=== PATIENT | male | born 1990 | race Caucasian/White ===

== ENCOUNTER 2016-12-01 12:03 | Emergency (ER) | payer MEDICAID ==
[~2016-12-01] VITALS: Ht 177.8 cm; Wt 89.8 kg
[2016-12-01] MEDS ORDERED: CITA20TA4 PO ×2 (12:14→12:16)
[2016-12-01] MEDS ORDERED: METO25TAB PO (12:16)
[2016-12-01] MEDS ORDERED: KETOROLAC 30 MG/ML VIAL (J1885) IM ONE (13:00)
[2016-12-01] MEDS ORDERED: HYDR25OIN TOP (13:47)
[2016-12-01] MEDS ORDERED: ULTR50TA PO (13:47)
[2016-12-01] MEDS ORDERED: CYCL10TA PO (13:47)
[2016-12-01] MEDS ORDERED: NAPR500T PO (13:47)
[2016-12-01] MEDS ORDERED: DULC10SU2 PR (13:49)
[2016-12-01 14:00] VITALS: BP 119/69
[2016-12-01] MEDS ORDERED: ACET-71 PO (14:15)
[2016-12-01] MEDS ORDERED: HYDR-3713 PO (14:17)
== END 2016-12-01 14:24 | disposition home or self-care (01) ==
LOC: M ED 12:44
DX: M54.42 Lumbago with sciatica, left side (principal); K64.9 Unspecified hemorrhoids; Z79.899 Other long term (current) drug therapy
CPT/HCPCS: 96372; 99282; J1885

== ENCOUNTER 2017-01-26 16:07 | Emergency (ER) | payer OTHER ==
[~2017-01-26] VITALS: Ht 180.3 cm; Wt 83.9 kg
[~2017-01-26 16:07] MED LIST: ACET-71 PO; CITA20TA4 PO; CYCL10TA PO; DULC10SU2 PR; HYDR-3713 PO; HYDR25OIN TOP; METO25TAB PO; NAPR500T PO; ULTR50TA PO
[2017-01-26] MEDS ORDERED: NS 1,000 ML IV ONE ×2 (16:15→18:15)
[2017-01-26 17:18] LABS: ALBUMIN 3.4 GM/DL (3.2-5.2); ALBUMIN/GLOBULIN RATIO 1.06 (1.00-1.93); ALKALINE PHOSPHATASE 75 U/L (45-117); ALT/SGPT 13 U/L (12-78); ANION GAP 6 MEQ/L (8-16); AST/SGOT 9 U/L (15-37); BILIRUBIN,DIRECT < 0.1 MG/DL (0.0-0.2); BILIRUBIN,TOTAL 0.3 MG/DL (0.2-1.0); BLOOD UREA NITROGEN 13 MG/DL (7-18); CARBON DIOXIDE LEVEL 26 MEQ/L (21-32); CHLORIDE LEVEL 109 MEQ/L (98-107); CREATININE FOR GFR 0.84 MG/DL (0.70-1.30); GLOMERULAR FILTRATION RATE > 60.0 (>60); GLUCOSE, FASTING 81 MG/DL (70-105); SODIUM LEVEL 141 MEQ/L (136-145); TOTAL PROTEIN 6.6 GM/DL (6.4-8.2)
[2017-01-26 17:44] LABS: MEAN CORPUSCULAR HEMOGLOBIN 32.8 pg (27.0-33.0); MEAN CORPUSCULAR HGB CONC 32.8 g/dl (32.0-36.5); MEAN CORPUSCULAR VOLUME 100.1 fl (80.0-96.0); WHITE BLOOD COUNT 6.3 K/mm3 (4.0-10.0)
[2017-01-26 20:20] VITALS: BP 105/74
--- NOTE | 2017-01-27 20:07 | ECGEPIP ---
Stationary ECG Study 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
== END 2017-01-26 21:08 | disposition left against medical advice (07) ==
LOC: M ED 16:57
DX: F13.10 Sedative, hypnotic or anxiolytic abuse, uncomplicated (principal); F11.10 Opioid abuse, uncomplicated

== ENCOUNTER 2017-03-01 10:07 | Emergency (ER) | payer OTHER ==
[2017-03-01 10:08] VITALS: BP 136/77
[2017-03-01] MEDS ORDERED: ALPR1TAB3 PO (10:29)
[2017-03-01] MEDS ORDERED: TRAM50TA2 PO (10:29)
[2017-03-01] MEDS ORDERED: METO25TA74 PO (10:29)
[2017-03-01] MEDS ORDERED: NORCO, ANEXSIA 5/325MG TABLET (HYDROcodone/ACETAMINOPHEN) PO ONE (13:15)
[2017-03-01] MEDS ORDERED: NAPR500T PO (13:27)
== END 2017-03-01 13:34 | disposition home or self-care (01) ==
LOC: M ED 11:03
DX: S20.219A Contusion of unspecified front wall of thorax, initial encounter (principal); V17 Pedal cycle rider injured in collision with fixed or stationary object; Y92.9 Unspecified place or not applicable; Y93.55 Activity, bike riding; Y99.9 Unspecified external cause status; Z79.899 Other long term (current) drug therapy

== ENCOUNTER 2017-03-03 11:56 | Emergency (ER) | payer OTHER ==
[~2017-03-03] VITALS: Ht 177.8 cm; Wt 97.2 kg
[~2017-03-03 11:56] MED LIST changes: +ALPR1TAB3 PO; +METO25TA74 PO; +TRAM50TA2 PO
[2017-03-03] MEDS ORDERED: CITA20TA4 PO (12:05)
[2017-03-03] MEDS ORDERED: NORCO, ANEXSIA 5/325MG TABLET (HYDROcodone/ACETAMINOPHEN) PO ONE (13:30)
--- NOTE | 2017-03-03 14:20 | REP ---
Right ribs and PA chest: Comparison is the PA and lateral chest 03/01/2017. Right ribs four views: There is no rib fracture or other rib abnormality. PA chest: There is no pneumothorax, hemothorax or pulmonary contusion. Lung zaman are clear. Cardiac size is normal. The chace, mediastinum, and bony thorax are unremarkable. Impression: Negative PA chest. No interval change. Signed by Preston Walker MD 03/03/2017 02:12 P
[2017-03-03 15:02] VITALS: BP 151/95
== END 2017-03-03 15:04 | disposition home or self-care (01) ==
LOC: M ED 13:01
DX: S20.219D Contusion of unspecified front wall of thorax, subsequent encounter (principal); V17 Pedal cycle rider injured in collision with fixed or stationary object; Y92.9 Unspecified place or not applicable; Y93.55 Activity, bike riding; Y99.9 Unspecified external cause status; R07.89 Other chest pain; I10 Essential (primary) hypertension; G89.29 Other chronic pain; F41.9 Anxiety disorder, unspecified; F32.9 Major depressive disorder, single episode, unspecified; F17.200 Nicotine dependence, unspecified, uncomplicated; Z79.899 Other long term (current) drug therapy

== ENCOUNTER 2017-03-12 23:06 | Inpatient (IN) | payer OTHER ==
[~2017-03-12] VITALS: Ht 177.8 cm; Wt 81.4 kg
[~2017-03-12 23:06] MED LIST changes: -ACET-71 PO; +ACET1TAB16 PO; +METO1TAB32 PO; +METO25TA4 PO; -METO25TA74 PO; -METO25TAB PO; -ULTR50TA PO; +ULTR50TA8 PO
[2017-03-13 02:35] LABS: RED CELL DISTRIBUTION WIDTH 13.5 % (11.5-14.5); WHITE BLOOD COUNT 8.1 K/mm3 (4.0-10.0)
[2017-03-13 03:10] LABS: ALBUMIN 4.2 GM/DL (3.2-5.2); ALBUMIN/GLOBULIN RATIO 1.17 (1.00-1.93); ALKALINE PHOSPHATASE 90 U/L (45-117); ALT/SGPT 14 U/L (12-78); ANION GAP 10 MEQ/L (8-16); AST/SGOT 8 U/L (15-37); BILIRUBIN,DIRECT 0.2 MG/DL (0.0-0.2); BILIRUBIN,TOTAL 0.6 MG/DL (0.2-1.0); BLOOD UREA NITROGEN 7 MG/DL (7-18); CALCIUM LEVEL 9.2 MG/DL (8.5-10.1); CARBON DIOXIDE LEVEL 23 MEQ/L (21-32); CHLORIDE LEVEL 108 MEQ/L (98-107); CREATININE FOR GFR 0.86 MG/DL (0.70-1.30); GLOMERULAR FILTRATION RATE > 60.0 (>60); GLUCOSE, FASTING 105 MG/DL (70-105); POTASSIUM SERUM 4.2 MEQ/L (3.5-5.1); SODIUM LEVEL 141 MEQ/L (136-145); TOTAL PROTEIN 7.8 GM/DL (6.4-8.2)
[2017-03-13] MEDS ORDERED: MOM 30ML SUSPENSION UDC PO PRN (04:30)
[2017-03-13] MEDS ORDERED: traZODone 50 MG TAB PO PRN (04:30)
[2017-03-13] MEDS ORDERED: MAALOX 30 ML SUSP *UDC PO PRN (04:30)
[2017-03-13 04:40] LABS: METHADONE URINE NEGATIVE (NEGATIVE)
[2017-03-13] MEDS ORDERED: TRAM50TA2 PO (05:14)
[2017-03-13] MEDS ORDERED: NAPR1TAB86 PO (05:14)
[2017-03-13 05:26] VITALS: BP 162/100
[2017-03-13] MEDS: CitaloPRAM (CeleXA) 20 MG TAB PO SCH (09:00)
[2017-03-13] MEDS: MULTIVITAMINS/MINERALS THERAP 1 TAB PO SCH (09:00)
[2017-03-13] MEDS: FOLIC ACID 1 MG TAB PO SCH (09:00)
[2017-03-13] MEDS: THIAMINE 100 MG TAB PO SCH ×2 (09:00→20:09)
[2017-03-13] MEDS ORDERED: SERTRALINE HCL 50 MG TAB PO SCH (09:00)
[2017-03-13] MEDS ORDERED: LORazepam 2 MG TAB PO PRN (10:30)
[2017-03-13] MEDS: diphenhydrAMINE 50 MG CAP PO PRN (16:31)
[2017-03-13 18:00] VITALS: BP 135/81
[2017-03-13] MEDS: ALPRAZolam 0.5 MG TAB PO PRN (20:53)
[2017-03-13] MEDS: ACETAMINOPHEN TAB 650MG DOSE (2X325MG) PO PRN (20:54)
[2017-03-13] MEDS: hydrOXYzine 50 MG TAB PO PRN (20:56)
[2017-03-13] MEDS: BACITRACIN OINT 30GM TOP SCH (21:00)
[2017-03-13] MEDS ORDERED: ONDANSETRON 4 MG ORAL DISINTEGRATING TAB (S0181) SL PRN (23:15)
[2017-03-13] MEDS ORDERED: diphenhydrAMINE CREAM 30GM TOP PRN (23:15)
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
[2017-03-14 06:00] VITALS: BP 117/73
[2017-03-14] MEDS: BACITRACIN OINT 30GM TOP SCH ×2 (09:00→21:00)
[2017-03-14] MEDS: MULTIVITAMINS/MINERALS THERAP 1 TAB PO SCH (09:35)
[2017-03-14] MEDS: CitaloPRAM (CeleXA) 20 MG TAB PO SCH (09:35)
[2017-03-14] MEDS: THIAMINE 100 MG TAB PO SCH ×2 (09:35→21:18)
[2017-03-14] MEDS: FOLIC ACID 1 MG TAB PO SCH (09:35)
[2017-03-14] MEDS: diphenhydrAMINE 50 MG CAP PO PRN ×2 (11:29→21:18)
[2017-03-14] MEDS: ALPRAZolam 0.5 MG TAB PO PRN (12:08)
[2017-03-14 18:00] VITALS: BP 116/72
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
[2017-03-15 06:28] VITALS: BP 104/55
[2017-03-15] MEDS: MULTIVITAMINS/MINERALS THERAP 1 TAB PO SCH (08:59)
[2017-03-15] MEDS: FOLIC ACID 1 MG TAB PO SCH (08:59)
[2017-03-15] MEDS: CitaloPRAM (CeleXA) 20 MG TAB PO SCH (08:59)
[2017-03-15] MEDS: THIAMINE 100 MG TAB PO SCH ×2 (08:59→20:44)
[2017-03-15] MEDS: BACITRACIN OINT 30GM TOP SCH ×2 (09:00→20:45)
[2017-03-15] MEDS: chlordiazePOXIDE 25 MG CAP PO SCH ×2 (15:39→20:44)
[2017-03-15] MEDS: ACETAMINOPHEN TAB 650MG DOSE (2X325MG) PO PRN (15:40)
--- NOTE | 2017-03-15 18:09 | IPN ---
DATE: 03/15/2017 A 26-year-old male with a history of polysubstance dependency, admitted for depression and suicidal ideation. SUBJECTIVE: "I am about the same, and I am withdrawing." OBJECTIVE: The patient is depressed, tearful at times with psychomotor retardation, sad, restricted facial expression. Reports high anxiety. Unable to sleep and symptoms from alcohol withdrawal. MENTAL STATUS EXAMINATION: The patient is dressed in [facility]. The patient is cooperative, has poor eye contact. Speech is slow and monotone. Mood is depressed and anxious. Affect is restricted, sad. No delusions or hallucinations. Memory, attention and concentration are impaired. The patient is able to contract for safety during his hospitalization. Insight and judgment is limited. ASSESSMENT: 1. Depression. 2. Suicidal ideation. 3. Polysubstance dependency. PLAN: 1. Start Librium 25 mg by mouth three times a day. 2. Trazodone 50 mg by mouth nightly. 3. Celexa 20 mg by mouth nightly. 4. Thiamine, folic acid and multivitamins as per detox protocol. 5. Close observation. 6. Continue medication management, individual and group therapy.
[2017-03-15 18:32] VITALS: BP 110/57
[2017-03-15] MEDS ORDERED: traZODone 50 MG TAB PO SCH (21:00)
[2017-03-16 06:30] VITALS: BP 110/67
[2017-03-16] MEDS: BACITRACIN OINT 30GM TOP SCH ×2 (08:36→20:12)
[2017-03-16] MEDS: FOLIC ACID 1 MG TAB PO SCH (08:51)
[2017-03-16] MEDS: chlordiazePOXIDE 25 MG CAP PO SCH ×3 (08:51→20:14)
[2017-03-16] MEDS: CitaloPRAM (CeleXA) 20 MG TAB PO SCH (08:51)
[2017-03-16] MEDS: MULTIVITAMINS/MINERALS THERAP 1 TAB PO SCH (08:51)
--- NOTE | 2017-03-16 16:16 | IPN ---
DATE: 03/16/2017 A 26-year-old male with a history of depression and polysubstance dependency, admitted with suicidal ideation. SUBJECTIVE: "I could not sleep last night, I keep waking up." OBJECTIVE: The patient is experiencing less symptoms of withdrawal today. Continues depressed with psychomotor retardation, restricted facial expression, and anxious. The patient is tolerating well the medication. The patient reports significant insomnia and waking up constantly. MENTAL STATUS EXAMINATION: The patient is dressed in [facility]. The patient is cooperative, has poor eye contact. Speech is slow and monotone. Mood is depressed and anxious. Affect is restricted. No delusions or hallucinations. Memory, attention and concentration are fair. The patient is able to contract for safety during his hospitalization. Insight and judgment is limited. ASSESSMENT: 1. Depression. 2. Suicidal ideation. 3. Polysubstance dependency. PLAN: 1. Continue with Librium 25 mg by mouth three times a day. 2. Increase trazodone to 100 mg by mouth at bedtime. 3. Continue Celexa 20 mg by mouth at bedtime. 4. Continue thiamine, folic acid and multivitamins as per detoxification protocol. 5. Continue medication management, individual and group therapy.
[2017-03-16 18:21] VITALS: BP 112/59
[2017-03-16] MEDS: traZODone 100 MG TAB PO SCH (20:14)
[2017-03-16] MEDS: ACETAMINOPHEN TAB 650MG DOSE (2X325MG) PO PRN (20:15)
[2017-03-17 06:32] VITALS: BP 125/59
[2017-03-17] MEDS: CitaloPRAM (CeleXA) 20 MG TAB PO SCH (08:06)
[2017-03-17] MEDS: FOLIC ACID 1 MG TAB PO SCH (08:06)
[2017-03-17] MEDS: chlordiazePOXIDE 25 MG CAP PO SCH (08:06)
[2017-03-17] MEDS: MULTIVITAMINS/MINERALS THERAP 1 TAB PO SCH (08:06)
[2017-03-17] MEDS: BACITRACIN OINT 30GM TOP SCH ×2 (08:07→20:15)
[2017-03-17] MEDS: diphenhydrAMINE 50 MG CAP PO PRN (13:34)
[2017-03-17] MEDS: hydrOXYzine 50 MG TAB PO PRN ×2 (13:53→20:14)
[2017-03-17 18:16] VITALS: BP 130/72
[2017-03-17] MEDS: ACETAMINOPHEN TAB 650MG DOSE (2X325MG) PO PRN (19:04)
--- NOTE | 2017-03-17 19:16 | IPN ---
DATE: 03/17/2017 A 26-year-old male with a history of depression, polysubstance dependency, admitted for depression and suicidal ideation. SUBJECTIVE: "I'm feeling a little better." OBJECTIVE: Patient was able to sleep better with trazodone last night. His withdrawal symptoms have improved. Denies side effect from the medication. There is no evidence of psychotic symptoms. No auditory or visual hallucinations or delusions. Patient continues with a sad, restricted facial expression and psychomotor retardation. Patient is able to contract for safety while in the hospital. MENTAL STATUS EXAMINATION: Patient is dressed in [facility]. Patient is cooperative. Has poor eye contact. His speech is slow and monotone. Mood is depressed and anxious. Affect is restricted. Denies delusions or hallucinations. Memory, attention, and concentration are fair. Patient is able to contract for safety. Insight and judgment are limited. ASSESSMENT: 1. Depression. 2. Suicidal ideation. 3. Polysubstance dependency. PLAN: 1. Decreased Librium to 10 mg by mouth three times a day. 2. Continue trazodone 100 mg by mouth at bedtime. 3. Continue Celexa 20 mg by mouth every morning. 4. Continue medication management, individual and group therapy.
[2017-03-17] MEDS: traZODone 100 MG TAB PO SCH (21:32)
[2017-03-18 06:50] VITALS: BP 125/58
[2017-03-18] MEDS: CitaloPRAM (CeleXA) 20 MG TAB PO SCH (08:42)
[2017-03-18] MEDS: MULTIVITAMINS/MINERALS THERAP 1 TAB PO SCH (08:42)
[2017-03-18] MEDS: FOLIC ACID 1 MG TAB PO SCH (08:42)
[2017-03-18] MEDS: BACITRACIN OINT 30GM TOP SCH ×2 (08:43→20:13)
[2017-03-18] MEDS: ACETAMINOPHEN TAB 650MG DOSE (2X325MG) PO PRN ×2 (15:29→21:44)
--- NOTE | 2017-03-18 16:11 | IPN ---
DATE: 03/18/2017 26-year-old male with history of depression, polysubstance dependency, admitted to our unit with suicidal ideation and worsening symptoms of depression. SUBJECTIVE: "I am feeling better." OBJECTIVE: Patient is improving slowly. Patient is sleeping better with the help of the medication. There is no evidence of withdrawal symptoms today. Denies side effect from the medication. No auditory or visual hallucinations or delusions. Patient continues with sad, restricted facial expression and psychomotor retardation. Patient is able to contract for safety while in the hospital. MENTAL STATUS EXAMINATION: Patient is dressed in [facility]. Patient is cooperative, has poor eye contact. Speech is slow and monotone. Mood is depressed and anxious. Affect is restricted. Patient's memory, attention, and concentration are fair. No psychotic symptoms. No auditory or visual hallucinations. Patient is able to contract for safety while in the hospital. Insight and judgment is limited. ASSESSMENT: 1. Depression. 2. Suicidal ideation. 3. Polysubstance dependency. PLAN: 1. Decrease Librium to 10 mg by mouth twice a day. 2. Continue trazodone 100 mg by mouth nightly. 3. Continue Celexa 20 mg by mouth every morning. 4. Continue medication management, individual and group therapy.
[2017-03-18 18:00] VITALS: BP 148/65
[2017-03-18] MEDS: traZODone 100 MG TAB PO SCH (21:42)
[2017-03-19 06:00] VITALS: BP 130/54
[2017-03-19] MEDS: BACITRACIN OINT 30GM TOP SCH ×2 (09:00→20:29)
[2017-03-19] MEDS: CitaloPRAM (CeleXA) 20 MG TAB PO SCH (09:39)
[2017-03-19] MEDS: MULTIVITAMINS/MINERALS THERAP 1 TAB PO SCH (09:39)
[2017-03-19] MEDS: FOLIC ACID 1 MG TAB PO SCH (09:39)
[2017-03-19] MEDS: ACETAMINOPHEN TAB 650MG DOSE (2X325MG) PO PRN ×2 (11:31→18:15)
--- NOTE | 2017-03-19 15:45 | IPN ---
DATE: 03/19/2017 A 26-year-old male with a history of depression, polysubstance dependency, admitted to our unit with suicidal ideation and significant symptoms of depression. SUBJECTIVE: "I'm feeling better." OBJECTIVE: Patient continues to improve slowly. Patient reports less depression but continues with psychomotor retardation, sad, restricted facial expression, and no interaction with other patients. Has tendency to stay by himself. Patient denies side effect from the medication. Patient has low insight into his chemical dependency. He is tolerating well the taper of Librium MENTAL STATUS EXAMINATION: Patient is dressed in [facility]. Patient is cooperative. Has poor eye contact. Speech is slow and monotone. Mood is depressed and anxious. Affect is restricted. Patient's memory, attention, and concentration are fair. No psychotic symptoms. No auditory or visual hallucinations. Patient is able to contract for safety while in the hospital. Insight and judgment are limited. ASSESSMENT: 1. Depression. 2. Suicidal ideation. 3. Polysubstance dependency. PLAN: 1. Decrease Librium to 10 mg by mouth at bedtime times two days and discontinue. 2. Continue trazodone 100 mg by mouth at bedtime. 3. Continue Celexa 20 mg by mouth every morning. 4. Continue medication management, individual and group therapy.
[2017-03-19 18:25] VITALS: BP 103/56
[2017-03-19] MEDS: traZODone 100 MG TAB PO SCH (22:15)
[2017-03-20 06:20] VITALS: BP 110/57
[2017-03-20] MEDS: CitaloPRAM (CeleXA) 20 MG TAB PO SCH (08:28)
[2017-03-20] MEDS: MULTIVITAMINS/MINERALS THERAP 1 TAB PO SCH (08:28)
[2017-03-20] MEDS: FOLIC ACID 1 MG TAB PO SCH (08:28)
[2017-03-20] MEDS: BACITRACIN OINT 30GM TOP SCH ×2 (08:29→20:20)
[2017-03-20] MEDS: diphenhydrAMINE 50 MG CAP PO PRN ×2 (14:55→23:16)
[2017-03-20] MEDS: IBUPROFEN 800 MG TAB PO PRN (16:01)
[2017-03-20 18:00] VITALS: BP 128/74
[2017-03-20] MEDS: ACETAMINOPHEN TAB 650MG DOSE (2X325MG) PO PRN (20:20)
[2017-03-20] MEDS: traZODone 100 MG TAB PO SCH (23:16)
[2017-03-21 06:14] VITALS: BP 128/78
[2017-03-21] MEDS: MULTIVITAMINS/MINERALS THERAP 1 TAB PO SCH (08:33)
[2017-03-21] MEDS: BACITRACIN OINT 30GM TOP SCH ×2 (08:33→21:00)
[2017-03-21] MEDS: CitaloPRAM (CeleXA) 20 MG TAB PO SCH (08:33)
[2017-03-21] MEDS: FOLIC ACID 1 MG TAB PO SCH (08:33)
[2017-03-21] MEDS: ACETAMINOPHEN TAB 650MG DOSE (2X325MG) PO PRN ×2 (14:39→20:54)
[2017-03-21] MEDS: IBUPROFEN 800 MG TAB PO PRN (16:51)
[2017-03-21 18:43] VITALS: BP 118/64
[2017-03-21] MEDS: traZODone 100 MG TAB PO SCH (22:43)
[2017-03-22] MEDS: hydrOXYzine 50 MG TAB PO PRN (00:50)
[2017-03-22 06:36] VITALS: BP 105/57
[2017-03-22] MEDS: MULTIVITAMINS/MINERALS THERAP 1 TAB PO SCH (08:26)
[2017-03-22] MEDS: FOLIC ACID 1 MG TAB PO SCH (08:26)
[2017-03-22] MEDS: CitaloPRAM (CeleXA) 20 MG TAB PO SCH (08:26)
[2017-03-22] MEDS: BACITRACIN OINT 30GM TOP SCH ×2 (09:00→21:00)
[2017-03-22] MEDS: IBUPROFEN 800 MG TAB PO PRN ×2 (13:28→22:04)
[2017-03-22] MEDS: ACETAMINOPHEN TAB 650MG DOSE (2X325MG) PO PRN (17:00)
[2017-03-22 18:11] VITALS: BP 122/76
[2017-03-22] MEDS: traZODone 100 MG TAB PO SCH (22:30)
--- NOTE | 2017-03-22 22:32 | IPN ---
DATE: 03/22/2017 26-year-old male with history of depression, polysubstance dependency, admitted to our unit with suicidal ideation and significant symptoms of depression. SUBJECTIVE: "I feel a lot better." OBJECTIVE: The patient is improving from his depression. The patient is interacting better with other patients and staff. The patient does not have psychomotor retardation today. His facial expressions have improved. No evidence of psychotic symptoms. The patient says that he has been calling inpatient programs for rehabilitation. MENTAL STATUS EXAMINATION: The patient is dressed in [facility]. The patient is cooperative. Has fair eye contact. Speech is slow and monotone but improved. Mood is depressed and anxious but also improved. Affect is congruent with mood. Attention, concentration and memory are fair. No auditory or visual hallucinations. No delusions. The patient is able to contract for safety during his hospitalization. Insight and judgment are limited. ASSESSMENT: 1. Depression. 2. Suicidal ideation. 3. Polysubstance dependency. PLAN: 1. Continue Celexa 20 mg by mouth in the morning. 2. Continue trazodone 100 mg by mouth at night. 3. Continue medication management, individual and group therapy.
[2017-03-23 06:24] VITALS: BP 102/99
[2017-03-23] MEDS: MULTIVITAMINS/MINERALS THERAP 1 TAB PO SCH (08:22)
[2017-03-23] MEDS: CitaloPRAM (CeleXA) 20 MG TAB PO SCH (08:22)
[2017-03-23] MEDS: FOLIC ACID 1 MG TAB PO SCH (08:22)
[2017-03-23] MEDS: BACITRACIN OINT 30GM TOP SCH ×2 (08:40→20:46)
[2017-03-23] MEDS: hydrOXYzine 50 MG TAB PO PRN (15:30)
[2017-03-23 18:00] VITALS: BP 142/78
[2017-03-23] MEDS: IBUPROFEN 800 MG TAB PO PRN (21:11)
[2017-03-23] MEDS: traZODone 100 MG TAB PO SCH (22:04)
[2017-03-24 07:08] VITALS: BP 115/65
[2017-03-24] MEDS: FOLIC ACID 1 MG TAB PO SCH (08:10)
[2017-03-24] MEDS: CitaloPRAM (CeleXA) 20 MG TAB PO SCH (08:10)
[2017-03-24] MEDS: MULTIVITAMINS/MINERALS THERAP 1 TAB PO SCH (08:10)
[2017-03-24] MEDS: BACITRACIN OINT 30GM TOP SCH ×2 (08:11→21:00)
[2017-03-24] MEDS: hydrOXYzine 50 MG TAB PO PRN (09:45)
[2017-03-24] MEDS: ACETAMINOPHEN TAB 650MG DOSE (2X325MG) PO PRN (16:36)
[2017-03-24 18:00] VITALS: BP 133/62
[2017-03-24] MEDS: IBUPROFEN 800 MG TAB PO PRN (21:25)
--- NOTE | 2017-03-24 22:15 | IPN ---
DATE: 03/24/2017 26-year-old male with a history of depression and polysubstance dependency admitted to our unit with suicidal ideation and significant symptoms of depression. SUBJECTIVE: "I want to go today." OBJECTIVE: The patient was tearful this morning. The patient was thinking to call the inpatient rehabilitation program but then all of a sudden changed his mind and requested to be discharged to live with a relative; however, his facial expression was very restricted, his eyes got teary a couple of times during the interview. He appeared to be impulsive, anxious and depression. We discussed the treatment with the patient, along with landscape architect and planner. MENTAL STATUS EXAMINATION: The patient is dressed in [facility]. The patient is anxious. Speech is slow and monotone. Mood is depressed and anxious. Affect is restricted. No evidence of delusions or hallucinations. Memory, attention and concentration were fair. The patient is able to contract for safety. Insight and judgment limited. ASSESSMENT: 1. Depression. 2. Suicidal ideation. 3. Polysubstance dependency. PLAN: 1. Continue with Celexa 20 mg by mouth in the morning. 2. Continue with trazodone 100 mg by mouth at night. 3. Continue medication management, individual and group therapy.
[2017-03-24] MEDS: traZODone 100 MG TAB PO SCH (22:19)
[2017-03-25 06:29] VITALS: BP 94/50
[2017-03-25] MEDS: MULTIVITAMINS/MINERALS THERAP 1 TAB PO SCH (08:24)
[2017-03-25] MEDS: FOLIC ACID 1 MG TAB PO SCH (08:24)
[2017-03-25] MEDS: CitaloPRAM (CeleXA) 20 MG TAB PO SCH (08:24)
[2017-03-25] MEDS: BACITRACIN OINT 30GM TOP SCH ×2 (08:24→21:00)
[2017-03-25] MEDS: ACETAMINOPHEN TAB 650MG DOSE (2X325MG) PO PRN ×3 (08:55→22:10)
--- NOTE | 2017-03-25 16:13 | IPN ---
DATE: 03/25/2017 26-year-old male with history of depression and polysubstance dependency admitted to our unit with suicidal ideation and significant symptoms of depression. SUBJECTIVE: "I'm feeling a little better." OBJECTIVE: Patient is somewhat improved from yesterday. Patient is not tearful and not as labile. Patient states that he is motivated for inpatient rehabilitation. Patient is able to contract for safety. No auditory or visual hallucinations or delusions. Patient denies side effect from the medication. MENTAL STATUS EXAMINATION: Patient is dressed in [facility]. Patient's speech is still slow and monotone, but improved. Mood is depressed and anxious, but also improved. Affect is not as restricted. No evidence of delusions or hallucinations. Memory, attention, and concentration are fair. Patient is able to contract for safety during his hospitalization. Insight and judgment is improving. ASSESSMENT: 1. Depression. 2. Suicidal ideation. 3. Polysubstance dependency. PLAN: 1. Continue Celexa 20 mg by mouth every morning. 2. Continue trazodone 100 mg by mouth nightly. 3. Continue medication management, individual and group therapy.
[2017-03-25] MEDS: IBUPROFEN 800 MG TAB PO PRN (16:38)
[2017-03-25 18:17] VITALS: BP 132/87
[2017-03-25] MEDS: traZODone 100 MG TAB PO SCH (22:09)
[2017-03-26 06:28] VITALS: BP 113/54
[2017-03-26] MEDS: CitaloPRAM (CeleXA) 20 MG TAB PO SCH (08:52)
[2017-03-26] MEDS: MULTIVITAMINS/MINERALS THERAP 1 TAB PO SCH (08:52)
[2017-03-26] MEDS: FOLIC ACID 1 MG TAB PO SCH (08:52)
[2017-03-26] MEDS: BACITRACIN OINT 30GM TOP SCH ×2 (08:53→21:00)
[2017-03-26] MEDS: ACETAMINOPHEN TAB 650MG DOSE (2X325MG) PO PRN (15:04)
[2017-03-26] MEDS: IBUPROFEN 800 MG TAB PO PRN (16:42)
[2017-03-26 18:00] VITALS: BP 143/84
[2017-03-26] MEDS: diphenhydrAMINE 50 MG CAP PO PRN ×2 (19:28→23:07)
--- NOTE | 2017-03-26 22:58 | IPN ---
DATE: 03/26/2017 26-year-old male with history of depression and polysubstance dependence admitted to our unit for suicidal ideation and significant symptoms of depression. SUBJECTIVE: "I am feeling better". OBJECTIVE: The patient continues to improve. His facial expression is better. He is able to smile. He is interacting better with other patients and staff. He is motivated for treatment. He wants to followup an inpatient rehabilitation program. There is no evidence of auditory or visual hallucinations or delusions. The patient is denying side effects from medication. MENTAL STATUS EXAM: The patient is dressed in [facility]. The patient's speech is normal in rate, volume and articulation. The patient has fair eye contact. Mood is depressed. Affect is labile. No delusions or hallucinations. Memory, attention and concentration are fair. The patient is able to contract for safety during hospitalization. Insight and judgment is limited. ASSESSMENT: 1. Depression. 2. Suicidal ideation. 3. Polysubstance dependency. PLAN: 1. Continue with Celexa 20 mg by mouth every morning. 2. Continue with trazodone 100 mg by mouth at bedtime 3. Continue medication management, individual and group therapy.
[2017-03-26] MEDS: traZODone 100 MG TAB PO SCH (23:47)
[2017-03-27 06:32] VITALS: BP 118/58
[2017-03-27] MEDS: FOLIC ACID 1 MG TAB PO SCH (08:39)
[2017-03-27] MEDS: MULTIVITAMINS/MINERALS THERAP 1 TAB PO SCH (08:39)
[2017-03-27] MEDS: CitaloPRAM (CeleXA) 20 MG TAB PO SCH (08:39)
[2017-03-27] MEDS: BACITRACIN OINT 30GM TOP SCH ×2 (08:40→21:00)
[2017-03-27] MEDS: ACETAMINOPHEN TAB 650MG DOSE (2X325MG) PO PRN (09:57)
[2017-03-27] MEDS: diphenhydrAMINE 50 MG CAP PO PRN ×3 (11:32→23:22)
[2017-03-27 18:00] VITALS: BP 104/52
[2017-03-27] MEDS: traZODone 100 MG TAB PO SCH (23:23)
[2017-03-28 06:00] VITALS: BP 109/53
[2017-03-28] MEDS: FOLIC ACID 1 MG TAB PO SCH (08:45)
[2017-03-28] MEDS: MULTIVITAMINS/MINERALS THERAP 1 TAB PO SCH (08:45)
[2017-03-28] MEDS: CitaloPRAM (CeleXA) 20 MG TAB PO SCH (08:45)
[2017-03-28] MEDS: BACITRACIN OINT 30GM TOP SCH ×2 (08:46→21:00)
[2017-03-28 18:00] VITALS: BP 147/89
[2017-03-28] MEDS: ACETAMINOPHEN TAB 650MG DOSE (2X325MG) PO PRN (18:18)
[2017-03-28] MEDS: diphenhydrAMINE 50 MG CAP PO PRN (22:04)
[2017-03-28] MEDS: traZODone 100 MG TAB PO SCH (22:05)
[2017-03-29 06:50] VITALS: BP 143/62
[2017-03-29] MEDS: MULTIVITAMINS/MINERALS THERAP 1 TAB PO SCH (08:35)
[2017-03-29] MEDS: CitaloPRAM (CeleXA) 20 MG TAB PO SCH (08:35)
[2017-03-29] MEDS: FOLIC ACID 1 MG TAB PO SCH (08:35)
[2017-03-29] MEDS: BACITRACIN OINT 30GM TOP SCH ×2 (08:36→20:43)
--- NOTE | 2017-03-29 16:19 | IPN ---
DATE: 03/29/2017 VITAL SIGNS: Temperature 97.1, pulse 72, respirations 18, blood pressure 143/62. CURRENT MEDICATIONS: - trazodone 100 mg at bedtime - Celexa 20 mg by mouth daily HISTORY OF PRESENT ILLNESS: This is a 26-year-old White male with a long history of polysubstance abuse who is currently homeless. Patient has been feeling depressed and suicidal. Brought in under mental hygiene arrest to the emergency room. Patient was seen by Dr. Chinchilla and continued on Celexa and trazodone combination. Patient showed signs of alcohol withdrawal. He was given Librium for detox with good effect. Patient is being evaluated for various rehabilitation facilities in [facility] for his substance use disorder. MENTAL STATUS EXAMINATION: The patient is alert and oriented times three. Affect appears calm. Mood shows minimal signs of dysphoria. He is not current suicidal. He is not homicidal. Insight and judgment appear fair to good. He is nonpsychotic. Not hearing voices. No paranoia or thought disorder. No signs of organicity. Grooming and hygiene appear good. DIAGNOSES: 1. Major depression, moderate severity. 2. Post-traumatic stress disorder (PTSD). 3. Polysubstance use disorder. PLAN: Continue current psychotropics. Patient will be transferred to inpatient rehabilitation in the near future. Patient to be maintained in the hospital and to continue therapy.
[2017-03-29 18:00] VITALS: BP 120/61
[2017-03-29] MEDS: traZODone 100 MG TAB PO SCH (22:22)
[2017-03-30 06:27] VITALS: BP 114/59
[2017-03-30] MEDS: FOLIC ACID 1 MG TAB PO SCH (08:38)
[2017-03-30] MEDS: BACITRACIN OINT 30GM TOP SCH (08:39)
[2017-03-30] MEDS: MULTIVITAMINS/MINERALS THERAP 1 TAB PO SCH (08:39)
[2017-03-30] MEDS ORDERED: CitaloPRAM (CeleXA) 10 MG TABLET PO SCH (09:00)
[2017-03-30] MEDS ORDERED: TRAZO50TA PO (15:05)
[2017-03-30] MEDS ORDERED: CELE10TA PO (15:05)
--- NOTE | 2017-03-30 17:45 | IPN ---
DATE: 03/30/2017 VITAL SIGNS: Temperature 98.3, pulse 75, respirations 18, blood pressure 114/59. CURRENT MEDICATIONS: - Celexa 10 mg every morning - trazodone 150 mg at bedtime HISTORY OF PRESENT ILLNESS: Patient is complaining of a pressure sensation in his head due to the Celexa. Later in the day it becomes a headache. Patient wanting to reduce the Celexa to 10 mg from the current 20 mg. Patient states his depressive symptoms are mild. His posttraumatic stress disorder (PTSD) symptoms are mild. He does have vivid dreams. This is always an issue when he gets clean and sober. He is wanting to his dose of trazodone to 150 mg at bedtime. [facility] as [facility]. His appetite is good. He is sleeping fairly well at night despite the vivid dreams. His concentration has been fine. MENTAL STATUS EXAMINATION: Mood and affect appear much improved. Anxiety is minimal. Depression is mild. He is not suicidal. Not homicidal. No signs of psychosis. Not hearing voices. No paranoia. Grooming and hygiene appear good. DIAGNOSES: 1. Major depression, moderate severity. 2. Posttraumatic stress disorder. 3. Polysubstance use disorder. PLAN: Discharge early tomorrow to [facility]. Trazodone dose increased to 150 mg at bedtime.
[2017-03-30 18:00] VITALS: BP 122/76
[2017-03-30] MEDS ORDERED: traZODone 50 MG TAB PO SCH (21:00)
[2017-03-30] MEDS: diphenhydrAMINE 50 MG CAP PO PRN (22:39)
[2017-03-31 06:58] VITALS: BP 103/55
--- NOTE | 2017-04-01 18:29 | MHDS ---
DATE OF ADMISSION: 03/13/2017 DATE OF DISCHARGE: 03/31/2017 VITAL SIGNS: Temperature 98.0, pulse, 79, respiration 18, blood pressure 103/55. LABS: CBC and differential within normal limits, chemistry within normal limits except for chloride 108. AST was low at 8. TOXICOLOGY: Was positive for amphetamines, benzodiazepines, and cannabis. DISCHARGE MEDICATIONS: - Celexa 10 mg every morning - trazodone 150 mg at night DISCHARGE DIAGNOSES: 1. Major depression recurrent. 2. Post-traumatic stress disorder (PTSD). 3. Polysubstance abuse disorder. CHIEF COMPLAINT: Depression with suicidal ideation. History of psychiatric illness. This is a 26-year-old White male with a long history of polysubstance use with recent depression and suicidal thoughts. The current precipitating stressor is contact with his mother who is dying from her drug addiction. Patient was admitted on a 939 basis. Patient had been prescribed Celexa 20 mg per day as an outpatient but has not been taking it due to financial issues. He was also prescribed Xanax 1 mg three times a day which is not recommended due to his addiction. Patient did show signs of alcohol withdrawal. This was treated with Librium with good effect. Patient was interested in various inpatient rehabilitation facilities here in [facility] for his substance use disorder. Patient seems sincere in his wish to overcome his history of addiction and advocated for himself effectively. He did develop some headaches from the Celexa which was then reduced to 10 mg per day with good effect. He still had some problems with insomnia so his trazodone was increased gradually to 150 mg at bedtime. Also with good effect. Patient was seen by me in 03/29/2017 onwards. He appeared to have reached maximum hospital benefit and appeared to ready for discharge. MENTAL STATUS EXAMINATION: At the time of discharge mood and affect were much improved. Anxiety was minimal. No signs of dysphoria or depression. He was not suicidal, homicidal and no signs of psychosis. Not hearing voices. No paranoia. Grooming and hygiene appeared good. No signs or organicity. ASSESSMENT: Patient has responded well to medications and therapy. PLAN: Patient appears appropriate for transfer to [facility] for 90 day inpatient rehabilitation program in [place].
== END 2017-03-31 08:50 | DRG 751 ==
LOC: M ED 03-13 01:22 → M ED INP 03-13 04:20 → M PSY 03-13 05:44
PROVIDERS: ADMIT Psychiatry & Neurology Psychiatry; ATTEND Psychiatry & Neurology Psychiatry
DX: F33.9 Major depressive disorder, recurrent, unspecified (principal); R45.851 Suicidal ideations; F43.10 Post-traumatic stress disorder, unspecified; F19.10 Other psychoactive substance abuse, uncomplicated; F17.210 Nicotine dependence, cigarettes, uncomplicated; Z79.899 Other long term (current) drug therapy; S80.811A Abrasion, right lower leg, initial encounter; S40.861A Insect bite (nonvenomous) of right upper arm, initial encounter; S40.862A Insect bite (nonvenomous) of left upper arm, initial encounter; X58.XXXA Exposure to other specified factors, initial encounter; Y92.9 Unspecified place or not applicable; Y93.9 Activity, unspecified; Y99.9 Unspecified external cause status